=== PATIENT | male | born 1980 | race Caucasian/White ===

== ENCOUNTER 2017-08-19 09:14 | Inpatient (IN) | payer OTHER ==
[~2017-08-19] VITALS: Ht 172.7 cm; Wt 54.4 kg
--- NOTE | ~2017-08-19 | EKG ---
[address] [place] [address] ELECTROCARDIOGRAM REPORT Name: DENICE DAS Room #: 427-P ADM IN M.R.#: [id number] Admission: 08/19/17 Attend Phys: Vianey Aguilar Discharge: Date of : 80 Report #: [id number] THIS REPORT FOR: //name// [facility] ED Test Date: 2017-08-19 Test Time: 09:49:28 Pat Name: DENICE VICKIERASHIDBERRY Department: Room: 427 Gender: M [employer] Work[employer]: Soraya HOBBS : 1980 Requested By: Bunny Concepcion Order Number: [id number] MD: Jack Monahan Measurements Intervals [place] Rate: 58 P: 44 MS: 130 QRS: 24 QRSD: 97 T: 54 QT: 437 QTc: 430 Interpretive Statements Sinus rhythm Low voltage, extremity leads No previous ECG available for comparison Electronically Signed On 08-19-2017 14:09:15 CDT by Jack Monahan [email or web address] <ELECTRONICALLY SIGNED> By: Jack Monahan MD, [facility] 08/19/17 1409 0949 0949 Jack Monahan MD, FACC /EPI
[~2017-08-19 09:14] MED LIST: ABILIFY 2 MG2 M1 GT; ACETAMINOPHEN325 M1 PT; ALPRAZOLAM GT; AMBEREN GT; AZO CRANBERRY GT; BACLOFEN20 MG GT; BACLOFEN20 MG PT; BACTRIM DS TAB1 EACH GT; BISAC-EVAC10 MG RECTAL; BISACODYL SUPP10 MG RE; BUDEPRION SR150 MG GT; CELEXA 20 MG TA20 MG GT; COLACE 100 MG100 MG GT; COMBIVENT INH; DURAGESIC1 EAC2 TOP; EFFEXOR75 MG PT; FENTANYL 1100 MCG/HR TOP; FLONASE; HYDROCODONE-AP1 EACH PT; IBUPROFEN 200200 M1; LANTUS SQ; LEVOTHROID GT; LEVOTHROID100 MC1 PT; MIRALAX255 GM; MOM PT; MUCINEX600 MG; NORCO 10-325 T1 EACH; NOVOLOG100 UNIT/1; NOVOLOG100 UNIT/1 SQ; PRIMAXIN IV; WELLBUTRIN GT; XANAX 0.25 MG0.25 MG PT; XANAX 0.5 MG0.5 M1 PT; XANAX 0.5 MG0.5 MG GT; XANAX XR1 MG PT; ZOFRAN4 MG GT; ZOFRAN4 MG PT
[2017-08-19 09:15] VITALS: BP 129/95
[2017-08-19 09:43] LABS: ABSOLUTE NEUTROPHILS 4.1 thou/uL (1.4-8.2); BASOPHILS 1.2 % (0.0-2.0); EOSINOPHILS 7.7 % (0.0-3.0); HEMATOCRIT 46.8 % (42.0-52.0); HEMOGLOBIN 15.6 gm/dL (14.0-18.0); LYMPHOCYTES 19.5 % (24.0-44.0); MCH 31.7 pg (26.0-34.0); MCHC 33.3 g/dL (28.0-37.0); MCV 95.5 fL (80.0-100.0); PLATELET COUNT 237 thou/uL (150-400); POLYS 60.6 % (36.0-66.0); RDW 15.1 % (10.5-14.5); WBC 6.9 thou/uL (4.0-11.0)
[2017-08-19 09:51] LABS: URINE BILIRUBIN NEGATIVE (Negative); URINE BLOOD 2+ (Negative); URINE CLARITY SL CLOUDY; URINE COLOR YELLOW; URINE GLUCOSE-RANDOM* NEGATIVE (Negative); URINE KETONES NEGATIVE (Negative); URINE LEUKOCYTES 2+ (Negative); URINE NITRITE NEGATIVE (Negative); URINE PROTEIN (DIPSTICK) 3+ (Negative); URINE UROBILINOGEN 0.2 E.U./dl (0.2-1.0)
[2017-08-19 09:54] LABS: ANION GAP 1 mmol/L (7-16); BUN 49 mg/dL (7-18); CALCIUM 9.3 mg/dL (8.5-10.1); CHLORIDE 111 mmol/L (98-107); CO2 35 mmol/L (21-32); CREATININE 1.1 mg/dL (0.7-1.3); GLUCOSE 161 mg/dL (74-106); POTASSIUM 4.4 mmol/L (3.5-5.1); SODIUM 147 mmol/L (136-145)
[2017-08-19] MEDS ORDERED: TYLENOL EXTRA500 MG PO (10:00)
[2017-08-19] MEDS ORDERED: NEURONTIN250 MG/5 M PER TUBE (10:01)
[2017-08-19 10:02] LABS: ALBUMIN 2.4 g/dL (3.4-5.0); DIRECT BILIRUBIN 0.1 mg/dL (<0.1-0.3); LIPASE 64 U/L (73-393); SGOT 31 U/L (15-37); SGPT 35 U/L (30-65); TOTAL BILIRUBIN 0.3 mg/dL (<0.1-1.0); TOTAL PROTEIN 7.1 g/dL (6.4-8.2); TROPONIN-I < 0.04 ng/mL (<0.06)
[2017-08-19] MEDS ORDERED: KEPPRA 500 MG500 M1 PER TUBE (10:02)
[2017-08-19] MEDS ORDERED: CLARITIN10 MG PER TUBE (10:03)
[2017-08-19] MEDS ORDERED: PROTONIX40 M1 PER TUBE (10:03)
[2017-08-19] MEDS ORDERED: ZOCOR20 MG PER TUBE (10:04)
[2017-08-19] MEDS ORDERED: VITAMINC500 PER TUBE (10:05)
[2017-08-19] MEDS ORDERED: TUSSIN100 MG/5 M PER TUBE (10:05)
[2017-08-19 10:25] LABS: CASTS None Seen /LPF (None Seen); SQUAMOUS None Seen /LPF (0-3); TRIPLE PHOSPHATE CRYSTALS 4-10 Moderate /LPF (None Seen)
[2017-08-19 10:27] LABS: URINE RBC 3-10 Few /HPF (0-2)
[2017-08-19 10:28] LABS: URINE WBC 6-15 Few /HPF (0-5)
[2017-08-19 12:23] VITALS: BP 126/86
[2017-08-19 12:39] LABS: AMP/METHAMP Negative (Negative); BARBITURATES Negative (Negative); BENZODIAZEPINES POSITIVE (Negative); COCAINE Negative (Negative); METHADONE Negative (Negative); OPIATES POSITIVE (Negative); PCP Negative (Negative)
[2017-08-19 13:27] VITALS: BP 103/65
[2017-08-19 19:28] VITALS: BP 141/91
[2017-08-20 06:05] LABS: HEMATOCRIT 40.1 % (42.0-52.0); MCHC 33.1 g/dL (28.0-37.0); MCV 96.7 fL (80.0-100.0); RBC 4.14 mil/uL (4.50-6.00); RDW 15.1 % (10.5-14.5); WBC 4.6 thou/uL (4.0-11.0)
[2017-08-20 06:07] LABS: HEMOGLOBIN 13.3 gm/dL (14.0-18.0)
[2017-08-20 06:25] LABS: ALBUMIN 1.9 g/dL (3.4-5.0); CALCIUM 8.4 mg/dL (8.5-10.1); CREATININE 1.1 mg/dL (0.7-1.3); POTASSIUM 3.8 mmol/L (3.5-5.1); TOTAL BILIRUBIN 0.2 mg/dL (<0.1-1.0); TOTAL PROTEIN 5.9 g/dL (6.4-8.2)
[2017-08-20 08:00] VITALS: BP 114/84
[2017-08-20 15:25] VITALS: BP 129/88
[2017-08-20 21:00] VITALS: BP 143/82
[2017-08-21 04:30] VITALS: BP 113/77
[2017-08-21 06:13] LABS: ALBUMIN 1.8 g/dL (3.4-5.0); CALCIUM 8.5 mg/dL (8.5-10.1); CREATININE 0.9 mg/dL (0.7-1.3); PHOSPHORUS 3.6 mg/dL (2.5-4.9); POTASSIUM 3.8 mmol/L (3.5-5.1)
[2017-08-21 07:40] VITALS: BP 96/63
[2017-08-21] MEDS ORDERED: LEVAQUIN 500 M500 M2 PER TUBE (09:14)
[2017-08-21] MEDS ORDERED: OXYCODONE HCL 55 MG PO (09:14)
[2017-08-21 16:09] VITALS: BP 114/78
[2017-08-21 19:22] VITALS: BP 102/68
[2017-08-22 03:51] VITALS: BP 103/73
[2017-08-22 06:16] LABS: ALBUMIN 1.8 g/dL (3.4-5.0); CALCIUM 7.9 mg/dL (8.5-10.1); CREATININE 0.9 mg/dL (0.7-1.3); PHOSPHORUS 3.2 mg/dL (2.5-4.9); POTASSIUM 3.7 mmol/L (3.5-5.1)
[2017-08-22 07:40] VITALS: BP 96/67
[2017-08-22] MEDS ORDERED: CEFUROXIME500 MG PER TUBE (09:00)
[2017-08-22] MEDS ORDERED: METOCLOPRA10 MG/101 PER TUBE (09:00)
[2017-08-22 15:10] VITALS: BP 149/83
[2017-10-08] MEDS ORDERED: BACTRIM DS TAB1 EACH PER TUBE (11:52)
[2017-10-08] MEDS ORDERED: DIFLUCAN150 MG PER TUBE (11:54)
[2017-10-08] MEDS ORDERED: LEVEMIR SUBQ (11:55)
[2017-10-08] MEDS ORDERED: ZOLOFT20 MG/1 ML PER TUBE (11:57)
[2017-10-08] MEDS ORDERED: NORCO 10-325 T1 EACH PER TUBE (11:58)
[2017-10-08] MEDS ORDERED: GLUCAGON EMERGEN1 MG IM (11:59)
[2017-10-11] MEDS ORDERED: LANTUS100 UNIT/M SUBQ (13:46)
[2017-10-11] MEDS ORDERED: VANCOMYCIN HCL10 GM PER TUBE (14:17)
== END 2017-08-22 16:30 | DRG 689 ==
LOC: ER 09:14 → EROBS 11:22 → 4E 13:38
PROVIDERS: Hospitalist; Nurse Practitioner
DX: N39.0 Urinary tract infection, site not specified (principal); J96.91 Respiratory failure, unspecified with hypoxia; J96.92 Respiratory failure, unspecified with hypercapnia; G82.50 Quadriplegia, unspecified; E87.0 Hyperosmolality and hypernatremia; F32.9 Major depressive disorder, single episode, unspecified; F41.9 Anxiety disorder, unspecified; E03.9 Hypothyroidism, unspecified; E11.9 Type 2 diabetes mellitus without complications; F07.81 Postconcussional syndrome; K59.00 Constipation, unspecified; Z93.1 Gastrostomy status; Z88.5 Allergy status to narcotic agent; Z79.1 Long term (current) use of non-steroidal anti-inflammatories (NSAID); Z79.899 Other long term (current) drug therapy; Z79.4 Long term (current) use of insulin; Z93.0 Tracheostomy status
CPT/HCPCS: 10183